=== PATIENT | male | born 1970 | race Hispanic/Latino ===

== ENCOUNTER 2019-12-24 16:56 | Emergency (ER) | payer SELFPAY ==
[2019-12-24] MEDS ORDERED: HYDROCODONE/ACETAMINOPHEN 10/325 MG TAB ONE (17:39)
[2019-12-24] MEDS ORDERED: KETOROLAC TROMETHAMINE 60 MG/2 ML VIAL ONE (17:39)
== END 2019-12-24 19:06 | disposition home or self-care (01) ==
LOC: EDH 16:56
DX: S33.5XXA Sprain of ligaments of lumbar spine, initial encounter (principal); R51 Headache; X50.0XXA Overexertion from strenuous movement or load, initial encounter; Y93.89 Activity, other specified; Y92.89 Other specified places as the place of occurrence of the external cause; Y99.8 Other external cause status
CPT/HCPCS: 72100; 96372; 99283; J1885

== ENCOUNTER 2022-12-29 07:02 | Emergency (ER) | payer OTHER ==
[~2022-12-29] VITALS: Ht 172.7 cm; Wt 95.3 kg
[2022-12-29 07:03] VITALS: BP 148/87
[2022-12-29] MEDS ORDERED: IBUPROFEN 400 MG TABLET ONE (07:10)
== END 2022-12-29 07:50 | disposition home or self-care (01) ==
LOC: EDH 07:02
DX: T14.8XXA Other injury of unspecified body region, initial encounter (principal); M54.2 Cervicalgia; M54.50 Low back pain, unspecified; Z98.890 Other specified postprocedural states; V89.2XXA Person injured in unspecified motor-vehicle accident, traffic, initial encounter; Y93.I9 Activity, other involving external motion; Y92.488 Other paved roadways as the place of occurrence of the external cause; Y99.8 Other external cause status
CPT/HCPCS: 99281; 99282